=== PATIENT | male | born 1955 | race Caucasian/White ===

== ENCOUNTER 2016-08-08 15:24 | Observation (INO) | payer BC ==
[2016-08-08 12:12] LABS: BASOPHILS 0.2 %; BASOPHILS ABSOLUTE 0.01 10/3/uL (0.0-0.16); EOSINOPHILS 2.2 %; EOSINOPHILS ABSOLUTE 0.13 10/3/uL (0.0-0.53); ER CBC TAT 0 Hrs 03 Mins; HEMATOCRIT 45.6 % (40.0-51.0); HEMOGLOBIN 15.8 g/dL (13.6-17.8); IMMATURE GRANULOCYTES 1.8 %; IMMATURE GRANULOCYTES ABSOLUTE 0.11 10/3/uL (0.0-0.11); LYMPHOCYTES 22.4 %; LYMPHOCYTES ABSOLUTE 1.34 10/3/uL (0.67-4.30); MANUAL DIFF NO %; MEAN CORPUS HGB CONC 34.6 g/dL (32.0-36.0); MEAN CORPUSCULAR HEMOGLOB 31.5 pg (26.0-34.0); MEAN CORPUSCULAR VOLUME 90.8 fL (80-100); MEAN PLATELET VOLUME 9.6 fL (9.2-13.0); MONOCYTES ABSOLUTE 0.72 10/3/uL (0.21-1.20); NEUTROPHILS 61.4 %; NEUTROPHILS ABSOLUTE 3.67 10/3/uL (2.02-8.40); PLATELET COUNT 234 10/3/uL (150-400); RED CELL COUNT 5.02 10/6/uL (4.7-6.1)
[2016-08-08 12:20] LABS: PARTIAL THROMBO TIME 25.4 SEC (22.5-37.2); PROTIME (NOT ORD) 13.1 SEC (12.0-14.5)
[2016-08-08 12:28] LABS: BUN (BLOOD UREA NITROGEN) 20 MG/DL (6-23); CALCIUM, SERUM 9.2 MG/DL (8.5-10.4); CHEST PAIN PROFILE TAT 0 Hrs 19 Mins; CHLORIDE, SERUM 108 MMOL/L (96-112); CO2 (CARBON DIOXIDE) 27 MMOL/L (24-34); CREATININE 1.34 MG/DL (0.70-1.30); GFR AFRICAN AMERICAN 65 ML/MIN (>=60); GFR NON AFRICAN AMERICAN 56 ML/MIN (>=60); POTASSIUM, SERUM 4.2 MMOL/L (3.5-5.3); SODIUM, SERUM 141 MMOL/L (135-148); TROPONIN I <0.02 NG/ML (<0.05)
[2016-08-08 12:31] LABS: GLUCOSE, SERUM 78 MG/DL (60-99)
[~2016-08-08 15:24] MED LIST: ACET500CAP PO; ASAB PO; CELEXA40 MG PO; HYDROCODONE PO; KLONO1 PO; KLONO2 PO; LEVOTHROID25 MCG PO; LEVOTHROID50 MCG PO; LEXAPRO10 PO; MULTIPLE VIT PO; NORCO1 TA1 PO; PRILO PO; SYN1 PO; SYN125 PO; SYSTANE OP
[2016-08-08] MEDS ORDERED: CELEXA40 MG PO (19:17)
[2016-08-08] MEDS ORDERED: KLONO2 PO (19:17)
[2016-08-08] MEDS ORDERED: SYN125 PO (19:17)
[2016-08-08] MEDS ORDERED: ASAB PO (19:18)
[2016-08-08] MEDS ORDERED: NITROSTAT0.4 MG SL (19:18)
[2016-08-08] MEDS ORDERED: SYSTANE OPH (19:20)
[2016-08-08] MEDS ORDERED: LEVAQUIN PO (19:20)
== END 2016-08-09 14:56 | disposition home or self-care (01) ==
LOC: ER 15:24 → CDU1 18:09
PROVIDERS: Hospitalist
DX: R07.2 Precordial pain (principal); I25.10 Atherosclerotic heart disease of native coronary artery without angina pectoris; E78.5 Hyperlipidemia, unspecified; I49.5 Sick sinus syndrome; M19.90 Unspecified osteoarthritis, unspecified site; K21.9 Gastro-esophageal reflux disease without esophagitis; E03.9 Hypothyroidism, unspecified; F41.9 Anxiety disorder, unspecified; Z79.82 Long term (current) use of aspirin; Z79.899 Other long term (current) drug therapy; Z95.0 Presence of cardiac pacemaker; Z87.442 Personal history of urinary calculi; Z98.890 Other specified postprocedural states
CPT/HCPCS: 71010; 78452; 80048; 83735; 84484; 85025; 85610; 85730; 90686; 93005; 93017; 93288; 99285; A9270-GY; A9502; G0008; G0378